=== PATIENT | male | born 1975 | race Caucasian/White ===

== ENCOUNTER 2019-03-02 10:53 | Emergency (ER) | payer BC ==
[~2019-03-02] VITALS: Ht 185.4 cm; Wt 113.4 kg
[2019-03-02 11:11] VITALS: BP 145/76
--- NOTE | 2019-03-02 11:19 | NUR ---
PT AMBULATED TO ED 11
--- NOTE | 2019-03-02 11:26 | NUR ---
43 Y/O M C/C OF LEFT SIDED NUMBNESS STARING AT 0950 HOURS TODAY. PER PT LKWT 0520 HOURS WHEN WOKE UP THIS AM. NEURO ASSESSMENT: A/OX4. PUPILS EQUALS TO PERRLA, CRANIAL NERVES 3,4,6 INTACT. UPPER EXTREMITIES STRONG SYMMETRICAL 5/5; LOWER EXTREMTIES SYMMETRICAL 5/5; FACIAL EXPRESIONS SYMMETRICAL: SMILE, TONGUE, EYEBROWS SYMMETRICAL. PER PT ALLERGIES NAPROXEN, HX ANXIETY, RX VUSPERON, NAUSEA. NO DIARREAH/VOMITING. ABNORMAL FINDINGS: PT LESS SENSATION AND NUMBNESS ON LEFT SIDE MORE THAN RIGHT. SIDE RAIL X1. FAMILY AT BEDSIDE. Addendum: 03/02/19 at 1140 by [employer] ABNORNAL: SLIGHT SLURRED SPEECH NOTED; ABLE TO UNDERSTAND CONVERSATION.
[2019-03-02] MEDS ORDERED: CLOPIDOGREL 75 MG TAB PO ONE (11:55)
[2019-03-02] MEDS ORDERED: NACL 0.9% 1,000 ML IV ONE (11:55)
[2019-03-02] MEDS ORDERED: LORazepam 2 MG/ML VIAL IVP ONE (11:55)
--- NOTE | 2019-03-02 12:10 | NUR ---
XRAY AT BEDSIDE
--- NOTE | 2019-03-02 12:10 | NUR ---
LAB AT BEDSIDE
[2019-03-02 12:23] LABS: BASOPHILS % (AUTO) 0.6 % (0.0-2.0); EOSINOPHILS % (AUTO) 0.6 % (0.0-4.0); HEMOGLOBIN 13.9 g/dL (12.0-18.0); LYMPHOCYTES # (AUTO) 1.6 K/uL (2.0-11.5); LYMPHOCYTES % (AUTO) 21.3 % (20.5-51.1); MEAN CORPUSCULAR HEMOGLOBIN 31 pg (27-31); MEAN CORPUSCULAR HGB CONC 33 g/dL (33-37); MEAN CORPUSCULAR VOLUME 92.4 fL (80-94); MONOCYTES # (AUTO) 0.7 K/uL (0.8-1.0); MONOCYTES % (AUTO) 9.6 % (1.7-9.3); NEUTROPHILS % (AUTO) 67.9 % (42.2-75.2); PLATELET COUNT (AUTO) 242 K/uL (140-450); RED BLOOD CELL COUNT(AUTO) 4.54 MIL/uL (4.20-6.10); RED CELL DISTRIBUTION WIDTH 13.3 % (11.6-13.7); WHITE BLOOD COUNT (AUTO) 7.3 K/uL (4.8-10.8)
[2019-03-02 12:41] LABS: ANION GAP 10.1 (8-16); CREATININE 0.9 mg/dL (0.7-1.3); POTASSIUM 4.1 mmol/L (3.5-5.1)
[2019-03-02 12:44] LABS: ALBUMIN 3.7 g/dL (3.4-5.0); TOTAL BILIRUBIN 0.9 mg/dL (0.0-1.0)
[2019-03-02 13:56] VITALS: BP 125/68
== END 2019-03-02 13:56 | disposition home or self-care (01) ==
LOC: EDBD 10:53 → MED 10:53
DX: F41.9 Anxiety disorder, unspecified (principal); Z88.1 Allergy status to other antibiotic agents; R42 Dizziness and giddiness
CPT/HCPCS: 36415; 71045; 80053; 84484; 85025; 93005; 96361; 96374; 99284; J2060; Q0092; J7030

== ENCOUNTER 2023-05-14 11:26 | Emergency (ER) | payer BC ==
[~2023-05-14] VITALS: Ht 185.4 cm; Wt 112.0 kg
[2023-05-14 11:30] VITALS: BP 136/86; PULSE 54; RESP 16; TEMP 98; O2SAT 99
[2023-05-14] MEDS ORDERED: LIDOCAINE MPF 1% 5 ML ONE (12:10)
[2023-05-14] MEDS ORDERED: ACET-8905 PO (13:57)
[2023-05-14] MEDS ORDERED: BACO TP (13:58)
[2023-05-14] MEDS: BACITRACIN OINT 500 UNITS/GM PKT TP ONE (14:01)
[2023-05-14 14:07] VITALS: BP 136/86; PULSE 54; RESP 16; TEMP 98; O2SAT 99
== END 2023-05-14 14:07 | disposition home or self-care (01) ==
LOC: MED 11:26
DX: S01.21XA Laceration without foreign body of nose, initial encounter (principal); Z79.899 Other long term (current) drug therapy; X58.XXXA Exposure to other specified factors, initial encounter; Y93.89 Activity, other specified; Y92.89 Other specified places as the place of occurrence of the external cause; Y99.8 Other external cause status
CPT/HCPCS: 12013; 99283; J2001

== ENCOUNTER 2023-05-22 14:49 | Emergency (ER) | payer BC ==
[~2023-05-22] VITALS: Ht 185.4 cm; Wt 112.0 kg
[~2023-05-22 14:49] MED LIST: ACET-8905 PO; BACO TP
[2023-05-22 15:04] VITALS: BP 141/82; PULSE 66; RESP 16; TEMP 99.1; O2SAT 97
== END 2023-05-22 16:50 | disposition home or self-care (01) ==
LOC: MED 14:49
DX: S01.21XD Laceration without foreign body of nose, subsequent encounter (principal); Z48.00 Encounter for change or removal of nonsurgical wound dressing; Z48.02 Encounter for removal of sutures; X58.XXXD Exposure to other specified factors, subsequent encounter
CPT/HCPCS: 99281

== ENCOUNTER 2023-05-31 07:53 | Emergency (ER) | payer BC ==
[~2023-05-31] VITALS: Ht 185.4 cm; Wt 111.1 kg
[2023-05-31 08:13] VITALS: BP 144/77; PULSE 60; RESP 20; TEMP 99.5; O2SAT 96
[2023-05-31 08:22] VITALS: O2SAT 96
[2023-05-31 09:23] LABS: BASOPHILS # (AUTO) 0.1 K/uL (0.00-0.22); BASOPHILS % (AUTO) 0.9 % (0.0-2.0); EOSINOPHILS # (AUTO) 0.3 K/uL (0-0.4); EOSINOPHILS % (AUTO) 4.3 % (0.0-4.0); HEMATOCRIT 41.2 % (36-52); HEMOGLOBIN 14.1 g/dL (12.0-18.0); LYMPHOCYTES # (AUTO) 1.3 K/uL (2.0-11.5); LYMPHOCYTES % (AUTO) 22.2 % (20.5-51.1); MEAN CORPUSCULAR HEMOGLOBIN 31 pg (27-31); MEAN CORPUSCULAR HGB CONC 34 g/dL (33-37); MEAN CORPUSCULAR VOLUME 91.9 fL (80-94); MONOCYTES # (AUTO) 0.7 K/uL (0.8-1.0); MONOCYTES % (AUTO) 12.4 % (1.7-9.3); NEUTROPHILS # (AUTO) 3.6 K/uL (1.8-7.7); NEUTROPHILS % (AUTO) 60.2 % (42.2-75.2); PLATELET COUNT (AUTO) 198 K/uL (140-450); RED BLOOD CELL COUNT(AUTO) 4.49 MIL/uL (4.20-6.10); RED CELL DISTRIBUTION WIDTH 13.3 % (11.6-13.7)
[2023-05-31] MEDS: LIDOCAINE 5% 1 EA PATCH TP ONE (09:29)
[2023-05-31] MEDS: ACETAMINOPHEN 325 MG TAB PO ONE (09:30)
[2023-05-31] MEDS: KETOROLAC 30 MG/ML VIAL IM ONE (09:31)
[2023-05-31 10:01] LABS: ANION GAP 10.6 (8-16); CALCIUM 8.1 mg/dL (8.5-10.1); CARBON DIOXIDE 28.2 mmol/L (21-32); CREATININE 0.7 mg/dL (0.6-1.3); POTASSIUM 3.8 mmol/L (3.5-5.1)
[2023-05-31 10:07] LABS: ALBUMIN 3.2 g/dL (3.4-5.0); BILIRUBIN,DIRECT 0.1 mg/dL (0.0-0.3); TOTAL BILIRUBIN 0.4 mg/dL (0.0-1.0); TOTAL PROTEIN, SERUM 6.4 g/dL (6.4-8.2)
[2023-05-31 10:21] LABS: APPEARANCE,URINE CLEAR (CLEAR); BILIRUBIN,URINE NEGATIVE (NEGATIVE); BLOOD, URINE NEGATIVE (NEGATIVE); COLOR,URINE YELLOW (YELLOW); LEUKOCYTE ESTERASE ,URINE NEGATIVE (NEGATIVE); NITRITE, URINE NEGATIVE (NEGATIVE); PROTEIN,URINE NEGATIVE (NEGATIVE); UGLUCOSE NEGATIVE (NEGATIVE); UROBILINOGEN,URINE 0.2 EU/dL (0.2 - 1)
[2023-05-31 10:59] LABS: FLU A ANTIGEN negative (NEGATIVE); FLU B ANTIGEN negative (NEGATIVE)
[2023-05-31] MEDS ORDERED: DOXY-690 PO (11:09)
[2023-05-31] MEDS ORDERED: AMOX1TAB8 PO (11:09)
== END 2023-05-31 11:21 | disposition home or self-care (01) ==
LOC: MED 07:53
DX: R10.9 Unspecified abdominal pain (principal); J18.9 Pneumonia, unspecified organism; Z20.822 Contact with and (suspected) exposure to COVID-19; Z79.899 Other long term (current) drug therapy; Z88.6 Allergy status to analgesic agent
CPT/HCPCS: 36415; 71045; 74176; 80048; 80076; 81003; 83690; 84484; 85025; 87426; 87804; 93005; 96372; 99285; J1885